=== PATIENT | male | born 1970 | race Caucasian/White ===

== ENCOUNTER 2016-07-11 00:29 | Emergency (ER) | payer MEDICARE ==
[2016-07-11 01:31] LABS: BASOPHIL 0.3 % (0-2); EOSINOPHIL 0.4 % (0-5); HGB 14.4 g/dl (13.2-18.0); LYMPHOCYTE 18.8 % (15-48); MCH 34.4 pg (25.0-31.0); MCHC 35.1 g/dL (32.0-36.0); MCV 98.1 fL (78.0-100.0); MONOCYTE 10.5 % (0-12); MPV 9.7 fL (6.0-9.5); PLT 279 K/uL (150-400); RBC 4.18 M/uL (4.70-6.00); RDW 13.2 % (11.5-14.0); WBC 7.7 K/uL (4.0-10.5)
[2016-07-11 01:50] LABS: CREATININE 1.1 mg/dL (0.7-1.2); POTASSIUM 4.2 mmol/L (3.5-5.1)
[2016-07-11 01:50] LABS: BILIRUBIN NEGATIVE (NEGATIVE); BLOOD NEGATIVE Ery/uL (NEGATIVE); CLARITY CLEAR (CLEAR); COLOR YELLOW (YELLOW); GLUCOSE (U) NORMAL (NORMAL); KETONE (U) NEGATIVE (NEGATIVE); LEUKOCYTES NEGATIVE Leu/uL (NEGATIVE); NITRITE NEGATIVE (NEGATIVE); PROTEIN 1+ mg/dL (NEGATIVE); pH 6.5 (5.0-9.0)
[2016-07-11 02:01] LABS: BACTERIA TRACE; MUCOUS LARGE; SQUAMOUS EPITHELIAL CELLS RARE; URINARY RBC RARE; URINARY WBC RARE
== END 2016-07-11 02:35 | disposition home or self-care (01) ==
LOC: FER 00:29
PROVIDERS: Internal Medicine
DX: N45.1 Epididymitis (principal); I10 Essential (primary) hypertension; G89.29 Other chronic pain; Z86.718 Personal history of other venous thrombosis and embolism; Z79.01 Long term (current) use of anticoagulants
CPT/HCPCS: 36415; 76870; 80048; 81001; 85025

== ENCOUNTER → 2021-06-25 | Day surgery (SDC) | payer MEDICARE ==
[~2021-06-25] VITALS: Ht 177.8 cm; Wt 108.9 kg
[~2021-06-25] MED LIST: BACLOFEN 10MG T10 MG PO; BAYER CHEWABLE81 MG PO; BUSPAR5 MG PO; ELAVIL25 MG PO; MOBIC7.5 MG PO; OXY-IR 5MG5 MG PO; PRINIVIL20 MG PO; SILDENAFIL20 MG PO; STOOL SOFTENER50 MG PO; VITAMIN D350 MC5 PO
== END | disposition home or self-care (01) ==
LOC: FAS 05-11 07:30
DX: Z12.11 Encounter for screening for malignant neoplasm of colon (principal); D12.3 Benign neoplasm of transverse colon; K29.50 Unspecified chronic gastritis without bleeding; K59.09 Other constipation; R13.10 Dysphagia, unspecified; K44.9 Diaphragmatic hernia without obstruction or gangrene; I10 Essential (primary) hypertension; K21.9 Gastro-esophageal reflux disease without esophagitis; E66.9 Obesity, unspecified; Z68.39 Body mass index [BMI] 39.0-39.9, adult; F43.10 Post-traumatic stress disorder, unspecified; Z79.82 Long term (current) use of aspirin
CPT/HCPCS: J2250; J2704; J7120